=== PATIENT | male | born 1955 | race African-American/Black ===

== ENCOUNTER 2021-12-27 15:53 | Observation (INO) ==
--- NOTE | 2021-12-27 17:22 | Emergency Department Note ---
Impression & Plan Radiculomyelopathy, Upper extremity weakness, Acute neck pain ED Provider Note NAME: BRITNEY MONSIVAIS AGE: 66 SEX: M : 1955 ARRIVES VIA: Ambulance INFORMANT: Patient ED PROVIDER(S): Mati Villeda DO CHIEF COMPLAINT: Unable to care for self at home HPI:Patient is a 66-year-old male with a past medical history of longstanding signs and symptoms of cervical myeloradiculopathy who underwent conservative treatment and eventually surgery at [place] for C3-T1 posterior spinal fusion with C2-C7 decompression. He was discharged on Friday following the surgery. Since being home he notes he is having trouble caring for himself. He notes he feels weak throughout. He has chronic weakness of his right upper extremity which she believes is slightly worse. It has been fairly stable as well as the left upper extremity. He denies any new weakness or numbness in the arms or legs.No headache or change in vision. No chest pain or shortness of breath. No other exacerbating or remitting factors.Pain in the neck has not changed and is constant 10 out of 10. ROS: See above HPI for pertinent positives & negatives. A total of 10 systems reviewed and were otherwise negative. PAST MEDICAL HISTORY:See Below PAST SURGICAL HISTORY:See Below FAMILY HISTORY:See Below SOCIAL HISTORY:See Below HOME MEDICATIONS:See Below ALLERGIES:See Below VITALS:See Below PHYSICAL EXAMINATION: GENERAL: Laying in bed cervical collar in place. Dressing posterior cervical re gionTracking down to the upper thoracic EYE EXAM: normal conjunctiva. PERRL and EOM's grossly intact. OROPHARYNX: no exudate, no erythema, lips, buccal mucosa, and tongue normal and mucous membranes are moist NECK: Cervical collar in place with large bulky dressing from the upper cervical to upper thoracic LUNGS: Clear to auscultation. Normal chest wall mechanics HEART: no murmurs, S1 normal and S2 normal ABDOMEN: abdomen soft, non-tender, normo-active bowel sounds, no masses, no rebound or guarding. BACK: Back is symmetrical on inspection and there is no deformity, no midline tenderness, no CVA tenderness. SKIN: no rashes and no bruising UPPER EXTREMITIES: upper extremities are grossly normal. LOWER EXTREMITIES: No pitting edema. NEURO EXAM: Normal sensorium, cranial nerves II-XII intact, normal speech. Weakness in his grasp bilaterally. Unable to AB duct right digits. Extension on the right has a 3 out of 5 old per patient. Flexion bilateral elbows is intact. Trouble with extension on the right elbow but again old per patient. Extension is slightly weak on the left as well but again old per patient.Pulses 2 out of 4. Gross sensation intact. MEDICAL DECISION MAKING: Patient is a six 6-year-old male who presents the ER for the boasting complaint. IV was established blood work was obtained. Labs show mild leukocytosis of 15,000. No anemia. BMP with mild hyponatremia 134. COVID was negative.Fever mild leukocytosis secondary to recent surgery. Patient mitts to some mild weakness which is new. He was given dose of IV morphine. He was updated bedside. He notes he is unable to care for himself at home and consequently was discussed with hospitalist for further evaluation of weakness. Due to current volume in ER will defer to hospitalist for MRI of cervical spine. Triage Nursing notes reviewed. Limited review of prior medical records performed Vital Signs: reviewed and remarkable for no significant abnormalities Differential diagnosis: Infection, dehydration, metabolic abnormality, hypo/hyperglycemia, electrolyte disturbance, anemia, hypoxia, cardiac sources, intracerebral event, toxicologic, neurologic, as well as other pathologies. ER treatment provided: See below Diagnostics interpreted by me: ECG: none Cardiac Monitoring: An order was placed for continuous cardiac monitoring. The monitor shows a rate of 95 with sinus rhythm. Laboratory studies: As stated above and show below. Imaging studies: See below Consultation(s): [facility] Procedures: none Critical Care: None Past Med/Surg History Social History Smoking Status: Never smoker Hx Alcohol Use: No Hx Substance Use: No Preferred Language: Portuguese [employer] Required: No Beliefs That Will Affect Care: None Current Living Situation: Alone Other Information That Helps Us Care for You: No Feels Safe at Home: Yes Safety Concerns: Feels Safe At This Time Assistive Devices: None Allergies Allergies Allergy/AdvReac Type Severity Reaction Status Date / Time aspirin Allergy Unknown UNKNOWN Verified 12/27/21 17:55 Home Meds Home Medications Medication Instructions Recorded Confirmed oxycodone 5 mg tablet 5 mg PO Q6H PRN Pain 12/27/21 12/27/21 tamsulosin 0.4 mg capsule 0.4 mg PO QAM 12/27/21 12/27/21 tizanidine 2 mg tablet 2 mg PO Q8H PRN MUSCLE SPASMS 12/27/21 12/27/21 Results & Data (ED) Vital Signs Vital Signs - 24 hr 12/27/21 15:59 Temperature 37.0 C Temperature Source Oral Pulse Rate 91 H Respiratory Rate 20 Respiratory Effort / Characteristics Non-Labored Respiratory Depth Normal Blood Pressure 127/86 Blood Pressure Mean 99 Pulse Oximetry 97 Oxygen Delivery Method Room Air Sepsis New/Unexplained Change in Mental Status No Sepsis Action Taken by Nursing No Action Required Laboratory Data Result diagrams: 12/27/21 17:05 12/27/21 17:05 Lab Results 12/27/21 12/27/21 Range/Units 17:05 17:05 WBC 15.60 H (4.8-10.8) K/ul RBC 4.65 (4.63-6.08) M/uL Hgb 13.0 L (14.0-18.0) g/dl Hct 38.7 L (40.1-51.0) % MCV 83.2 (80.0-100.0) fL MCH 28.0 (25.0-34.0) pg MCHC 33.6 (32.0-36.0) g/dL RDW Std Deviation 41.1 (36.4-46.3) fL RDW Coeff of Poly 13.5 (11.5-14.5) % Plt Count 423 H (130-400) K/uL MPV 9.8 (9.4-12.4) fL Immature Gran % (Auto) 0.6 % Neut % (Auto) 78.0 % Lymph % (Auto) 12.1 % Camp % (Auto) 8.7 % Eos % (Auto) 0.3 % Baso % (Auto) 0.3 % Neut # (Auto) 12.17 H (1.4-6.5) K/uL Lymph # (Auto) 1.89 (1.2-3.4) K/uL Camp # (Auto) 1.35 H (0.24-0.82) K/uL Eos # (Auto) 0.05 (0-0.50) K/uL Baso # (Auto) 0.04 (0-0.2) K/uL Immature Gran # (Auto) 0.10 H (0.00-0.02) K/uL Sodium 132 L (136-145) mmol/L Potassium 4.2 (3.5-5.1) mmol/L Chloride 97 L (98-107) mmol/L Carbon Dioxide 25 (21-32) mmol/L Anion Gap 10 (3-11) BUN 16 (6-23) mg/dl Creatinine 0.90 (0.6-1.4) mg/dl Est Cr Clr Drug Dosing Not Reportable Est GFR ( Amer) 102.1 ml/min Est GFR (Non-Af Amer) 88.1 ml/min BUN/Creatinine Ratio 17.8 (10-20) Glucose 110 H (70-99(Fasting)) mg/dl Calcium 9.6 (8.5-10.1) mg/dl Total Bilirubin 0.7 (0.2-1.0) mg/dl AST 18 (13-39) U/L ALT 24 (7-52) U/L Alkaline Phosphatase 83 (34-104) U/L Total Protein 7.9 (6.0-8.3) gm/dl Albumin 3.9 (3.4-5.0) gm/dl Globulin 4.0 (2.5-4.0) gm/dl Albumin/Globulin Ratio 1.0 (0.9-2) Administered Medications Acetaminophen (Acetaminophen 500 Mg Tab) 1,000 mg PO Q8H [facility] Stop: 01/26/22 21:23 Last Admin: 12/27/21 22:38 Dose: 1,000 mg Documented By: SG Gabapentin (Gabapentin 100 Mg Cap) 100 mg PO TID MORA Stop: 01/26/22 21:23 Last Admin: 12/27/21 22:37 Dose: 100 mg Documented By: NATHALIA Insulin Aspart (Insulin Aspart Per Unit) 0 units SC ACHS [facility] Stop: 01/26/22 21:23 Last Admin: 12/27/21 22:20 Dose: Not Given Documented By: NATHALIA Tizanidine HCl (Tizanidine Hcl 4 Mg Tablet) 2 mg PO TID PRN PRN Reason: MUSCLE SPASM Stop: 01/26/22 21:23 Last Admin: 12/27/21 22:37 Dose: 2 mg Documented By: SG Discontinued Medications Morphine Sulfate (Morphine Sulfate 4 Mg/Ml 1 Ml Carp\Vial) 4 mg IV NOW STA Stop: 12/27/21 18:16 Last Admin: 12/27/21 18:22 Dose: 4 mg Documented By: NANDINI Ondansetron HCl (Ondansetron Inj 2 Mg/Ml 2 Ml Vial) 4 mg IV NOW STA Stop: 12/27/21 18:16 Last Admin: 12/27/21 18:22 Dose: 4 mg Documented By: NANDINI Discharge Plan Visit Data Chief Complaint: Back Injury/Pain Stated Complaint: YAZ ED Provider: Mati Villeda Discharge Problem: Radiculomyelopathy, Upper extremity weakness, Acute neck pain Patient Disposition: Admitted As Inpatient Discharge Instructions Interventions: ED Discharge Assessment Last Done: 12/27/21 20:12
[2021-12-27 17:24] LABS: Basophils # (auto) 0.04 K/uL (0-0.2); Basophils % (auto) 0.3 %; Eosinophils # (auto) 0.05 K/uL (0-0.50); Eosinophils % (auto) 0.3 %; Hematocrit (blood only) 38.7 % (40.1-51.0); Immature Granulocytes % (auto) 0.6 %; Lymphocytes # (auto) 1.89 K/uL (1.2-3.4); Lymphocytes % (auto) 12.1 %; Mean Corpuscular Hgb Conc 33.6 g/dL (32.0-36.0); Mean Corpuscular Volume 83.2 fL (80.0-100.0); Mean Platelet Volume 9.8 fL (9.4-12.4); Monocytes # (auto) 1.35 K/uL (0.24-0.82); Monocytes % (auto) 8.7 %; Neutrophils # (auto) 12.17 K/uL (1.4-6.5); Platelet Count 423 K/uL (130-400); RDW Coefficient of Variation 13.5 % (11.5-14.5); RDW Standard Deviation 41.1 fL (36.4-46.3); Red Blood Count 4.65 M/uL (4.63-6.08)
[2021-12-27 17:47] LABS: Alanine Aminotransferase 24 U/L (7-52); Albumin Level 3.9 gm/dl (3.4-5.0); Alkaline Phosphatase 83 U/L (34-104); Anion Gap 10 (3-11); Aspartate Aminotransferase 18 U/L (13-39); BUN Creatinine Ratio 17.8 (10-20); Bilirubin,Total 0.7 mg/dl (0.2-1.0); Blood Urea Nitrogen 16 mg/dl (6-23); Calcium 9.6 mg/dl (8.5-10.1); Carbon Dioxide 25 mmol/L (21-32); Chloride 97 mmol/L (98-107); Est GFR (African American) 102.1 ml/min; Est GFR (Non-African American) 88.1 ml/min; Glucose 110 mg/dl (70-99(Fasting)); Potassium 4.2 mmol/L (3.5-5.1); Sodium 132 mmol/L (136-145); Total Protein 7.9 gm/dl (6.0-8.3)
[2021-12-27] MEDS ORDERED: ONDANSETRON INJ 2 MG/ML 2 ML VIAL IV STA (18:15)
[2021-12-27] MEDS ORDERED: MoRPHine SULFATE 4 MG/ML 1 ML CARP\\VIAL IV STA (18:15)
--- NOTE | 2021-12-27 20:41 | History & Physical Report ---
Date of Service December 27, 2021 Assessment & Plan (1) Upper extremity weakness: (2) Cervical stenosis of spinal canal: (3) Radiculomyelopathy: Plan: 66 YEAR OLD MALE WITH HISTORY OF CERVICAL STENOSIS WITH RADICULOMYLEPATHY, PRE-DM, PRESENTING WITH UPPER EXTREMITY WEAKNESS AFTER CERVICAL SPINE SURGERY. UPPER EXTREMITY WEAKNESS, CERVICAL STENOSIS, RADICULOMYELOPATHY s/p C3-T1 posterior spinal fusion with C2-C7 decompression last week at [facility] by Dr. Gonzalez ([facility] no [id number]) upper extremity motor strength pre OP: R 3/5, L 4/5, today R 2-3/5, L 3/[address] Gonzalez, recommend Cervical spine MRI and Decadron 8mg x [address] Gonzalez tomorrow re: MRI findings and clinical exam pain regimen: Tylenol 1g PO MORA, Gabapentin 100mg TID, PRN oxycodone and Zanaflex PT/OT evaluation, Case Management consult will need inpatient Rehab PRE-DM BSGs while on Decadron ISS DVT PROPHYLAXIS scds FULL CODE PER PATIENT DISPOSITION INPATIENT REHAB plan of care discussed with patient in detail and at length all questions answered he is understanding, agreeable, comfortable with the plan of care History of Present Illness Chief Complaint: B/L UPPER EXTREMITY WEAKNESS, S/P CERVICAL SPINE SURGERY Primary Care Provider: Mariama Severino MD 66 YEAR OLD MALE WITH HISTORY OF CERVICAL STENOSIS WITH RADICULOMYLEPATHY, PRE-DM, PRESENTING WITH UPPER EXTREMITY WEAKNESS AFTER CERVICAL SPINE SURGERY. Patient underwent C3-T1 posterior spinal fusion with C2-C7 decompression last week at [facility] by Dr. Gonzalez. He said his BL upper extremity weakness was starting to improve and he was discharged home last Friday. Unfortunately, patient reports his upper extremity weakness seemed to have slowly worsened while at home, which made activities of daily living a significant challenge. He presented to the ER for evaluation and request to transition to inpatient Rehab. On exam, patient seen resting in bed, not in distress. Reports moderate-severe pain on the surgical site, but no dyspnea, dysphagia, numbess. He is able to ambulate well, and has good strength on his lower extremities. No fever/chills no chest pain, dyspnea, palpitations, dizziness no other symptoms Allergies Allergy/AdvReac Type Severity Reaction Status Date / Time aspirin Allergy Unknown UNKNOWN Verified 12/27/21 17:55 Home Medications Medication Instructions Recorded Confirmed Type oxycodone 5 mg tablet 5 mg PO Q6H PRN Pain 12/27/21 12/27/21 History tamsulosin 0.4 mg capsule 0.4 mg PO QAM 12/27/21 12/27/21 History tizanidine 2 mg tablet 2 mg PO Q8H PRN MUSCLE SPASMS 12/27/21 12/27/21 History Past Med/Surg History Social History Smoking Status: Never smoker Preferred Language: Kazakh Feels Safe at Home: Yes Review of Systems Review of Systems: all noted and negative except for above Physical Exam Physical Exam: General- oriented x 3, not in distress, speaks in sentences with no effort or accessory muscle use Head- atraumatic Eyes- PERRL, EOMI, anicteric ENT- oropharynx clear Neck- cervical collar in place dressing on the posterior neck: intact, no bleeding/discharge (not opened per patient request, he was advised by the surgeon not to dress/open the wound until his ff up appointment) Lungs- clear to auscultation bilaterally, no rales/wheezes Heart- normal rate, regular rhythm; no murmur, no gallop, no rub appreciated Abdomen- normal bowel sounds, nondistended, soft, nontender, no masses or hepatosplenomegaly Extremities- no pretibial edema, no calf tenderness; peripheral pulses intact Neuro- alert, oriented x 3; CN 2-12 grossly intact; Upper extremity motor: R 2- 3/5, L 3-4/5, Lower extremity motor: 5/5 bilaterally;sensation 100% on all extremities; no other gross focal neurologic deficits Skin- warm & dry Results & Data Results & Data ([facility]) Vital Signs (Past 12 Hours) Vital Signs Temp Pulse Pulse Resp BP BP Pulse Ox 12/27/21 19:56 97 H 20 125/78 96 12/27/21 18:14 87 18 121/78 99 12/27/21 18:06 85 18 95 12/27/21 15:59 37.0 C 91 H 20 127/86 97 O2 Del Method 12/27/21 19:56 Room Air 08/11/22 18:14 Room Air 12/27/21 18:06 Room Air 12/27/21 15:59 Room Air all noted and reviewed including below Code Status & VTE Plan VTE Prophylaxis Plan VTE Prophylaxis will be ordered: Yes
[2021-12-27] MEDS ORDERED: DEXTROSE 50% 50 ML SYRINGE IV PRN (21:24)
[2021-12-27] MEDS ORDERED: CARBOHYDRATES FOR HYPOGLYCEMIA PO PRN (21:24)
[2021-12-27] MEDS ORDERED: GLUCOSE 10 TAB/TUBE PO PRN (21:24)
[2021-12-27] MEDS ORDERED: GLUCAGON FOR INJ 1 MG VIAL SQ PRN (21:24)
[2021-12-27] MEDS ORDERED: GLUCOSE 40% GEL 15 GM TUBE PO PRN (21:24)
[2021-12-27] MEDS: INSULIN ASPART PER UNIT SC SCH (22:20)
[2021-12-27] MEDS: tiZANidine HCL 4 MG TABLET PO PRN (22:37)
[2021-12-27] MEDS: GABAPENTIN 100 MG CAP PO SCH (22:37)
[2021-12-27] MEDS: ACETAMINOPHEN 500 MG TAB PO SCH (22:38)
[2021-12-28] MEDS: dexAMETHasone 8 MG in SYRINGE 0 ML IV SCH ×3 (00:17→14:43)
[2021-12-28] MEDS: MoRPHine SULFATE 4 MG/ML 1 ML CARP\\VIAL IV PRN (00:17)
[2021-12-28] MEDS: ACETAMINOPHEN 500 MG TAB PO SCH ×3 (06:15→21:25)
[2021-12-28 06:22] LABS: Basophils # (auto) 0.03 K/uL (0-0.2); Basophils % (auto) 0.2 %; Eosinophils # (auto) 0.01 K/uL (0-0.50); Eosinophils % (auto) 0.1 %; Hematocrit (blood only) 42.1 % (40.1-51.0); Hemoglobin 13.8 g/dl (14.0-18.0); Immature Granulocytes # (auto) 0.13 K/uL (0.00-0.02); Immature Granulocytes % (auto) 0.9 %; Lymphocytes # (auto) 1.64 K/uL (1.2-3.4); Mean Corpuscular Hemoglobin 27.7 pg (25.0-34.0); Mean Corpuscular Hgb Conc 32.8 g/dL (32.0-36.0); Mean Corpuscular Volume 84.4 fL (80.0-100.0); Mean Platelet Volume 9.8 fL (9.4-12.4); Monocytes # (auto) 0.23 K/uL (0.24-0.82); Monocytes % (auto) 1.5 %; Neutrophils # (auto) 12.87 K/uL (1.4-6.5); Neutrophils % (auto) 86.3 %; Platelet Count 455 K/uL (130-400); RDW Coefficient of Variation 13.7 % (11.5-14.5); RDW Standard Deviation 42.6 fL (36.4-46.3); Red Blood Count 4.99 M/uL (4.63-6.08); White Blood Count 14.91 K/ul (4.8-10.8)
[2021-12-28 07:01] LABS: Anion Gap 11 (3-11); BUN Creatinine Ratio 17.5 (10-20); Blood Urea Nitrogen 18 mg/dl (6-23); Calcium 9.9 mg/dl (8.5-10.1); Carbon Dioxide 24 mmol/L (21-32); Chloride 98 mmol/L (98-107); Est GFR (African American) 86.7 ml/min; Est GFR (Non-African American) 74.8 ml/min; Glucose 139 mg/dl (70-99(Fasting)); Potassium 4.5 mmol/L (3.5-5.1); Sodium 133 mmol/L (136-145)
[2021-12-28 07:31] LABS: Estimated Average Glucose 126 mg/dl
[2021-12-28] MEDS: INSULIN ASPART PER UNIT SC SCH ×4 (09:43→20:57)
[2021-12-28] MEDS: oxyCODONE HCL IR 5 MG TAB (IMMEDIATE RELEASE) PO PRN ×2 (09:44→21:26)
[2021-12-28] MEDS: GABAPENTIN 100 MG CAP PO SCH ×3 (09:44→21:26)
[2021-12-28] MEDS: tiZANidine HCL 4 MG TABLET PO PRN ×2 (09:45→22:01)
[2021-12-28] MEDS: TAMSULOSIN HCL 0.4 MG CAP PO SCH (10:53)
--- NOTE | 2021-12-28 12:44 | Magnetic Resonance Report ---
MR cervical spine wo con HISTORY: 66 years-old Male upper arm weakness, s/p cervical spine surgery acute neck pain with right upper extremity radicular symptoms status post recent cervical spine surgery. COMPARISON: MRI cervical spine 03/14/2014, CT cervical spine 09/15/2021. TECHNIQUE: Multiplanar multisequence MRI of the cervical spine was obtained without the use of IV con trast. FINDINGS: Study is degraded by motion artifact. The patient is status post laminectomy at C3-C6 with posterior interbody eli and screw fusion hardware at C3-T1. Susceptibility artifact from the hardware also limi ts the exam. Large fluid collection within the deep operative bed measures up to 13 cm extending from C2 to T3 level. Fluid collection within the deeper laminectomy bed measures up to 6 cm. There is a s mall amount of nonspecific prevertebral edema within the paraspinal musculature. No acute fracture, s ubluxation or endplate erosion. Signal within the cervical and imaged thoracic spinal cord appears unremarkable. C2-C3: Moderate intervertebral disc space narrowing and facet arthrosis with small posterior annular disc bulge. AP dimension of the thecal sac measures 7 mm. Mild central canal stenosis. The neural for los appear patent. C3-C4: Mild intervertebral disc space narrowing and moderate facet arthrosis with uncovertebral hyper trophy and small posterior annular disc bulge. AP dimension of the thecal sac measures 6 mm. Moderate central canal stenosis with moderate bilateral foraminal narrowing, mildly progressed from prior. C4-C5: Moderate intervertebral disc space narrowing with uncovertebral hypertrophy and circumferentia l disc osteophyte complex with moderate facet arthrosis. AP dimension of the thecal sac measures 6 mm . Moderate central canal stenosis with mild right and severe left neuroforaminal narrowing, similar t o prior. C5-C6: Moderate intervertebral disc space narrowing with uncovertebral hypertrophy and circumferentia l disc osteophyte complex with moderate facet arthrosis. AP dimension of the thecal sac measures 6 mm . Moderate central canal stenosis with severe bilateral neural foraminal narrowing, similar to progre ssed from prior. C6-C7: Moderate to severe intervertebral disc space narrowing with uncovertebral hypertrophy and circ umferential disc osteophyte complex with moderate facet arthrosis. AP dimension of the thecal sac emmett sures 6 mm. Moderate central canal stenosis with severe bilateral neural foraminal narrowing, similar to progressed from prior. C7-T1: Moderate intervertebral disc space narrowing with uncovertebral hypertrophy and posterior disc osteophyte complex with moderate facet arthrosis. AP dimension of the thecal sac measures 9 mm. No s ignificant central canal stenosis. There is at least moderate bilateral neural foraminal narrowing, s uboptimally evaluated secondary to artifact from the hardware. IMPRESSION: 1. Limited exam as above. 2. The patient is status post laminectomy at C3-C6 with posterior interbody eli and screw fusion hard roach at C3-T1. 3. Posterior operative bed fluid collections suggestive of seromas. Infection cannot be excluded by i maging alone. 4. Mild prevertebral edema is also likely an expected postoperative finding. 5. Multilevel central canal and neural foraminal narrowing as above. ACT 112: Negative or not required by law. The above report was generated using voice recognition software. It may contain grammatical, syntax o r spelling errors. Dictated: 12/28/2021 9:02 AM Transcribed: 12/28/2021 11:45 AM Seema [id number] [email or web address] Electronically signed by: Ridge Traore M.D. 12/28/2021 12:43 PM
--- NOTE | 2021-12-28 22:29 | Hospitalist Progress Note ---
Date of Service December 28, 2021 Assessment & Plan (1) Upper extremity weakness: (2) Cervical stenosis of spinal canal: (3) Radiculomyelopathy: Plan: 66 YEAR OLD MALE WITH HISTORY OF CERVICAL STENOSIS WITH RADICULOMYLEPATHY, PRE-DM, PRESENTING WITH UPPER EXTREMITY WEAKNESS AFTER CERVICAL SPINE SURGERY. UPPER EXTREMITY WEAKNESS, CERVICAL STENOSIS, RADICULOMYELOPATHY s/p C3-T1 posterior spinal fusion with C2-C7 decompression last week at [facility] facility by Dr. Gonzalez ([facility] no [id number]) upper extremity motor strength pre OP: R 3/5, L 4/5, today R 2-3/5, L 3/5 MRI brain showed status post laminectomy at C3-C6 with posterior interbody eli and screw fusion hardware at C3-T1. Posterior operative bed fluid collections suggestive of seromas. Infection cannot be excluded by imaging alone. Mild prevertebral edema is also likely an expected postoperative finding.Multilevel central canal and neural foraminal narrowing as above. MRI finding discussed with his spine surgeon Dr. Gonzalez. as per dr. Gonzalez MRI showed normal postoperative finding. Adequate decompression Dr. Gonzalez said that he would take time for his motor strength improved because pt had spine compression for a long time Received decadron x 3 doses. no need to continue additional steroid as per Dr. Gonzalez Pt is neurological stable Continue Gabapentin 100mg TID, PRN oxycodone and Zanaflex Continue physical therapy and occupational therapy Plan to discharge to rehab PRE-diabetes BS mildly elevated due to steroid Hba1c 6 (12/28/21) Continue monitor BS DVT PROPHYLAXIS scds FULL CODE PER PATIENT DISPOSITION INPATIENT REHAB Admission and Anticipated Discharge Date Admission Date: December 27, 2021 Subjective Pt was seen and examined for follow up of right upper extremity weakness and difficulty to open right hand Lying in bed bed with no acute distress Pt said that neck pain improves and weakness slightly improves Denies any chest pain, palpitation, dizziness and SOB Review of Systems Review of Systems: All systems reviewed & are unremarkable except as noted in Subjective Physical Exam Physical Exam: General- No acute distress Head- atraumatic Eyes- PERRL, EOMI, ENT- oropharynx clear Neck- +soft collar in place Lungs- clear to auscultation Heart- regular rhythm; no murmur Abdomen- normal bowel sounds, soft, nontender Extremities- no calf tenderness, +right hand closed Neuro- alert, oriented x 3; PERRL, EOMI; no facial palsy; no dysarthria, unable to open his right hand without using his left hand to help open it Skin- warm & dry Results & Data Results & Data ([facility]) Vital Signs (Past 12 Hours) Vital Signs Temp Pulse Resp BP Pulse Ox O2 Del Method 12/28/21 21:18 36.6 C 84 18 134/75 98 Room Air 12/28/21 15:45 36.3 C L 83 16 137/74 93 Room Air
[2021-12-29] MEDS: ACETAMINOPHEN 500 MG TAB PO SCH ×3 (06:20→21:00)
[2021-12-29] MEDS: GABAPENTIN 100 MG CAP PO SCH ×3 (08:25→21:00)
[2021-12-29] MEDS: TAMSULOSIN HCL 0.4 MG CAP PO SCH (08:26)
[2021-12-29] MEDS: oxyCODONE HCL IR 5 MG TAB (IMMEDIATE RELEASE) PO PRN ×2 (08:30→21:00)
[2021-12-29] MEDS: INSULIN ASPART PER UNIT SC SCH ×4 (09:03→20:48)
[2021-12-29] MEDS: MoRPHine SULFATE 4 MG/ML 1 ML CARP\\VIAL IV PRN (13:16)
[2021-12-29] MEDS: bisacodyL 5 MG TABEC PO PRN (18:18)
[2021-12-29] MEDS: tiZANidine HCL 4 MG TABLET PO PRN (21:00)
--- NOTE | 2021-12-29 23:57 | Hospitalist Progress Note ---
Date of Service December 29, 2021 Assessment & Plan (1) Upper extremity weakness: (2) Cervical stenosis of spinal canal: (3) Radiculomyelopathy: Plan: 66 YEAR OLD MALE WITH HISTORY OF CERVICAL STENOSIS WITH RADICULOMYLEPATHY, PRE-DM, PRESENTING WITH UPPER EXTREMITY WEAKNESS AFTER CERVICAL SPINE SURGERY. UPPER EXTREMITY WEAKNESS, CERVICAL STENOSIS, RADICULOMYELOPATHY s/p C3-T1 posterior spinal fusion with C2-C7 decompression last week at [facility] [address] [facility] by Dr. Gonzalez ([facility] no [id number]) upper extremity motor strength pre OP: R 3/5, L 4/5, today R 2-3/5, L 3/5 MRI brain showed status post laminectomy at C3-C6 with posterior interbody eli and screw fusion hardware at C3-T1. Posterior operative bed fluid collections suggestive of seromas. Infection cannot be excluded by imaging alone. Mild prevertebral edema is also likely an expected postoperative finding.Multilevel central canal and neural foraminal narrowing as above. MRI finding discussed with his spine surgeon Dr. Gonzalez. as per dr. Gonzalez MRI showed normal postoperative finding. Adequate decompression Dr. Gonzalez said that he would take time for his motor strength improved because pt had spine compression for a long time Received decadron x 3 doses. no need to continue additional steroid as per Dr. Gonzalez Pt is neurological stable Continue Gabapentin 100mg TID, PRN oxycodone and Zanaflex Continue physical therapy and occupational therapy Plan to discharge to rehab, waiting for placement Constipation Will add Dulcolax PRE-diabetes BS mildly elevated due to steroid Hba1c 6 (12/28/21) Continue monitor BS DVT PROPHYLAXIS on SCDs FULL CODE PER PATIENT DISPOSITION Waiting for placement Admission and Anticipated Discharge Date Admission Date: December 27, 2021 Subjective Pt was seen and examined for follow up of right upper extremity weakness and difficulty to open right hand sitting in chair with no acute distress eating his meal Pt said that neck pain improves and weakness slightly improves Pt said that he has not had a bowel movement for a week Denies any chest pain, palpitation, dizziness and SOB Review of Systems Review of Systems: All systems reviewed & are unremarkable except as noted in Subjective Physical Exam Physical Exam: General- No acute distress Head- atraumatic Eyes- PERRL, EOMI, ENT- oropharynx clear Neck- +soft collar in place Lungs- clear to auscultation Heart- regular rhythm; no murmur Abdomen- normal bowel sounds, soft, nontender Extremities- no calf tenderness, +right hand closed Neuro- alert, oriented x 3; PERRL, EOMI; no facial palsy; no dysarthria, unable to open his right hand without using his left hand to help open it Skin- warm & dry Results & Data Results & Data ([facility]) Vital Signs (Past 12 Hours) Vital Signs Temp Pulse Resp BP BP Pulse Ox O2 Del Method 12/29/21 22:22 36.6 C 76 18 110/71 98 Room Air 12/29/21 15:00 36.5 C 84 16 120/73 94 Room Air
[2021-12-30] MEDS: oxyCODONE HCL IR 5 MG TAB (IMMEDIATE RELEASE) PO PRN ×3 (04:35→21:45)
[2021-12-30] MEDS: ACETAMINOPHEN 500 MG TAB PO SCH ×3 (04:36→21:45)
[2021-12-30] MEDS: TAMSULOSIN HCL 0.4 MG CAP PO SCH (08:06)
[2021-12-30] MEDS: GABAPENTIN 100 MG CAP PO SCH ×3 (08:06→21:45)
[2021-12-30] MEDS: INSULIN ASPART PER UNIT SC SCH ×4 (08:10→20:33)
[2021-12-30] MEDS: MoRPHine SULFATE 4 MG/ML 1 ML CARP\\VIAL IV PRN (12:00)
[2021-12-30] MEDS: POLYETHYLENE (MIRALAX) 17 GM PACK PO PRN (15:12)
[2021-12-30] MEDS: tiZANidine HCL 4 MG TABLET PO PRN (21:50)
--- NOTE | 2021-12-30 23:48 | Hospitalist Progress Note ---
Date of Service December 30, 2021 Assessment & Plan (1) Upper extremity weakness: (2) Cervical stenosis of spinal canal: (3) Radiculomyelopathy: Plan: 66 YEAR OLD MALE WITH HISTORY OF CERVICAL STENOSIS WITH RADICULOMYLEPATHY, PRE-DM, PRESENTING WITH UPPER EXTREMITY WEAKNESS AFTER CERVICAL SPINE SURGERY. UPPER EXTREMITY WEAKNESS, CERVICAL STENOSIS, RADICULOMYELOPATHY s/p C3-T1 posterior spinal fusion with C2-C7 decompression last week at [facility] facility by Dr. Gonzalez ([facility] no [id number]) upper extremity motor strength pre OP: R 3/5, L 4/5, today R 2-3/5, L 3/5 MRI brain showed status post laminectomy at C3-C6 with posterior interbody eli and screw fusion hardware at C3-T1. Posterior operative bed fluid collections suggestive of seromas. Infection cannot be excluded by imaging alone. Mild prevertebral edema is also likely an expected postoperative finding.Multilevel central canal and neural foraminal narrowing as above. MRI finding discussed with his spine surgeon Dr. Gonzalez. as per dr. Gonzalez MRI showed normal postoperative finding. Adequate decompression Dr. Gonzalez said that he would take time for his motor strength improved because pt had spine compression for a long time Received decadron x 3 doses. no need to continue additional steroid as per Dr. Gonzalez Pt is neurological stable Continue Gabapentin 100mg TID, PRN oxycodone and Zanaflex Continue physical therapy and occupational therapy Plan to discharge to rehab, waiting for placement Constipation Pt said that he had not had a bowel movement over 1 week Continue Dulcolax Will add Miralax prn PRE-diabetes BS mildly elevated due to steroid Hba1c 6 (12/28/21) Continue monitor BS DVT PROPHYLAXIS on SCDs FULL CODE PER PATIENT DISPOSITION Waiting for placement Admission and Anticipated Discharge Date Admission Date: December 27, 2021 Subjective Pt was seen and examined for follow up of right upper extremity weakness and difficulty to open right hand Lying in bed with no acute distress watching TV Pt said that he felt a pressure and tenderness at the back of his neck He said that he saw a serous drainage in the pillow then after that the pressure and tenderness around his cervical spine relieved Pt said that he feels fine. denies any chest pain, palpitation, dizziness and SOB Denies any chest pain, palpitation, dizziness and SOB Review of Systems Review of Systems: All systems reviewed & are unremarkable except as noted in Subjective Physical Exam Physical Exam: General- No acute distress Head- atraumatic Eyes- PERRL, EOMI, ENT- oropharynx clear Neck- +soft collar in place Lungs- clear to auscultation Heart- regular rhythm; no murmur Abdomen- normal bowel sounds, soft, nontender Extremities- no calf tenderness, +right hand closed Neuro- alert, oriented x 3; PERRL, EOMI; no facial palsy; no dysarthria, unable to open his right hand without using his left hand to help open it Skin- warm & dry Results & Data Results & Data ([facility]) Vital Signs (Past 12 Hours) Vital Signs Temp Pulse Resp BP Pulse Ox O2 Del Method 12/30/21 17:16 36.5 C 92 H 16 136/81 97 Room Air
[2021-12-31] MEDS: oxyCODONE HCL IR 5 MG TAB (IMMEDIATE RELEASE) PO PRN ×2 (04:56→09:04)
[2021-12-31] MEDS: ACETAMINOPHEN 500 MG TAB PO SCH ×3 (04:56→21:35)
[2021-12-31 06:13] LABS: Hematocrit (blood only) 38.9 % (40.1-51.0); Hemoglobin 12.5 g/dl (14.0-18.0); Mean Corpuscular Hemoglobin 27.6 pg (25.0-34.0); Mean Corpuscular Hgb Conc 32.1 g/dL (32.0-36.0); Mean Corpuscular Volume 85.9 fL (80.0-100.0); Mean Platelet Volume 9.3 fL (9.4-12.4); Platelet Count 524 K/uL (130-400); RDW Coefficient of Variation 13.6 % (11.5-14.5); Red Blood Count 4.53 M/uL (4.63-6.08)
[2021-12-31] MEDS: INSULIN ASPART PER UNIT SC SCH ×4 (09:01→23:46)
[2021-12-31] MEDS: GABAPENTIN 100 MG CAP PO SCH ×3 (09:03→21:35)
[2021-12-31] MEDS: TAMSULOSIN HCL 0.4 MG CAP PO SCH (09:03)
--- NOTE | 2021-12-31 22:57 | Hospitalist Progress Note ---
Date of Service December 31, 2021 Assessment & Plan (1) Upper extremity weakness: (2) Cervical stenosis of spinal canal: (3) Radiculomyelopathy: Plan: 66 YEAR OLD MALE WITH HISTORY OF CERVICAL STENOSIS WITH RADICULOMYLEPATHY, PRE-DM, PRESENTING WITH UPPER EXTREMITY WEAKNESS AFTER CERVICAL SPINE SURGERY. UPPER EXTREMITY WEAKNESS, CERVICAL STENOSIS, RADICULOMYELOPATHY s/p C3-T1 posterior spinal fusion with C2-C7 decompression last week at [facility] facility by Dr. Gonzalez ([facility] no [id number]) upper extremity motor strength pre OP: R 3/5, L 4/5, today R 2-3/5, L 3/5 MRI brain showed status post laminectomy at C3-C6 with posterior interbody eli and screw fusion hardware at C3-T1. Posterior operative bed fluid collections suggestive of seromas. Infection cannot be excluded by imaging alone. Mild prevertebral edema is also likely an expected postoperative finding.Multilevel central canal and neural foraminal narrowing as above. MRI finding discussed with his spine surgeon Dr. Gonzalez. as per dr. Gonzalez MRI showed normal postoperative finding. Adequate decompression Dr. Gonzalez said that he would take time for his motor strength improved because pt had spine compression for a long time Received decadron x 3 doses. no need to continue additional steroid as per Dr. Gonzalez Pt is neurological stable Continue Gabapentin 100mg TID, PRN oxycodone and Zanaflex Continue physical therapy and occupational therapy Plan to discharge to rehab, waiting for placement Constipation Pt said that he had not had a bowel movement over 1 week Continue Dulcolax and Miralax prn PRE-diabetes BS mildly elevated due to steroid Hba1c 6 (12/28/21) Continue monitor BS DVT PROPHYLAXIS on SCDs FULL CODE PER PATIENT DISPOSITION Waiting for placement Denies [facility] Admission and Anticipated Discharge Date Admission Date: December 27, 2021 Subjective Pt was seen and examined for follow up of right upper extremity weakness and difficulty to open right hand Lying in bed with no acute distress resting comfortable He continues did not have a bowel movement Insurance denied inpatient rehab. I called for peer to peer review- it could not do it since i don't have pt policy number I called spine ortho dr. Gonzalez today, no one answered Denies any chest pain, palpitation, dizziness and SOB Review of Systems Review of Systems: All systems reviewed & are unremarkable except as noted in Subjective Physical Exam Physical Exam: General- No acute distress Head- atraumatic Eyes- PERRL, EOMI, ENT- oropharynx clear Neck- +soft collar in place Lungs- clear to auscultation Heart- regular rhythm; no murmur Abdomen- normal bowel sounds, soft, nontender Extremities- no calf tenderness, +right hand closed Neuro- alert, oriented x 3; PERRL, EOMI; no facial palsy; no dysarthria, unable to open his right hand without using his left hand to help open it Skin- warm & dry Results & Data Results & Data ([facility]) Vital Signs (Past 12 Hours) Vital Signs Temp Pulse Resp BP Pulse Ox O2 Del Method 12/31/21 16:00 36.9 C 87 16 110/72 97 Room Air
[2022-01-01] MEDS: MoRPHine SULFATE 4 MG/ML 1 ML CARP\\VIAL IV PRN (01:20)
[2022-01-01] MEDS: ACETAMINOPHEN 500 MG TAB PO SCH ×3 (06:06→20:56)
[2022-01-01] MEDS: oxyCODONE HCL IR 5 MG TAB (IMMEDIATE RELEASE) PO PRN ×4 (06:07→22:05)
[2022-01-01 07:04] LABS: Hematocrit (blood only) 37.2 % (40.1-51.0); Hemoglobin 12.7 g/dl (14.0-18.0); Mean Corpuscular Hemoglobin 28.2 pg (25.0-34.0); Mean Corpuscular Hgb Conc 34.1 g/dL (32.0-36.0); Mean Corpuscular Volume 82.7 fL (80.0-100.0); Mean Platelet Volume 9.2 fL (9.4-12.4); Platelet Count 540 K/uL (130-400); RDW Coefficient of Variation 13.7 % (11.5-14.5); RDW Standard Deviation 41.1 fL (36.4-46.3); White Blood Count 12.01 K/ul (4.8-10.8)
[2022-01-01] MEDS: GABAPENTIN 100 MG CAP PO SCH ×3 (08:24→20:56)
[2022-01-01] MEDS: TAMSULOSIN HCL 0.4 MG CAP PO SCH (08:25)
[2022-01-01] MEDS: INSULIN ASPART PER UNIT SC SCH (08:56)
[2022-01-01] MEDS ORDERED: bisacodyL 5 MG TABEC PO ONE (08:58)
--- NOTE | 2022-01-01 10:35 | Hospitalist Progress Note ---
Date of Service January 01, 2022 Assessment & Plan (1) Upper extremity weakness: (2) Cervical stenosis of spinal canal: (3) Radiculomyelopathy: Plan: 66 YEAR OLD MALE WITH HISTORY OF CERVICAL STENOSIS WITH RADICULOMYLEPATHY, PRE-DM, PRESENTING WITH UPPER EXTREMITY WEAKNESS AFTER CERVICAL SPINE SURGERY. UPPER EXTREMITY WEAKNESS, CERVICAL STENOSIS, RADICULOMYELOPATHY s/p C3-T1 posterior spinal fusion with C2-C7 decompression last week at [facility] facility by Dr. Gonzalez (cell no [id number]) upper extremity motor strength pre OP: R 3/5, L 4/5, now R 2-3/5, L 3/5 MRI brain showed status post laminectomy at C3-C6 with posterior interbody eli and screw fusion hardware at C3-T1. Posterior operative bed fluid collections suggestive of seromas. Infection cannot be excluded by imaging alone. Mild prevertebral edema is also likely an expected postoperative finding.Multilevel central canal and neural foraminal narrowing as above. MRI finding discussed with his spine surgeon Dr. Gonzalez. as per dr. Gonzalez MRI showed normal postoperative finding. Adequate decompression Dr. Gonzalez said that he would take time for his motor strength improved because pt had spine compression for a long time Received decadron x 3 doses. no need to continue additional steroid as per Dr. Gonzalez Pt is neurological stable Continue Gabapentin 100mg TID, PRN oxycodone and Zanaflex Continue physical therapy and occupational therapy Plan to discharge to rehab, waiting for placement Peer to Peer to be performed today Constipation Pt said that he had not had a bowel movement over 1 week Still no BM, abd soft will give ducolax x 1 now PRE-diabetes BS mildly elevated due to steroid Hba1c 6 (12/28/21) BSG well controlled, will d/c novolog coverage Continue monitor fasting BSG Anemia hgb stable at 12.7 likely related to blood loss from previous surgery DVT PROPHYLAXIS on SCDs FULL CODE PER PATIENT DISPOSITION Waiting for placement Peer to peer today with insurance company to be done, denied acute rehab, also discussed that likely to get denied subacute based on functionality. Discussed with CM. Pt was seen and examined in collaboration with Dr. Bardales, please see addendum Admission and Anticipated Discharge Date Admission Date: December 27, 2021 Supervising Physician Co-Signing Physician Notes Pt was seen and examined for follow up of right upper extremity weakness and difficulty to open right hand. Agreed with Kenyetta GAMING exam, assessment and plan. s/p C3-T1 posterior spinal fusion with C2-C7 decompression last week at [facility] by Dr. Gonzalez (cell no [phone]) upper extremity motor strength pre OP: R 3/5, L 4/5, now R 2-3/5, L 3/5. MRI brain showed status post laminectomy at C3-C6 with posterior interbody eli and screw fusion hardware at C3-T1. Posterior operative bed fluid collections suggestive of seromas. Infection cannot be excluded by imaging alone. Peer to peer review is arranged for today. Continue PT/OT eval. Fall precaution. Continue monitor closely. MD Jeffy Subjective Patient was seen and examined in room 314. Follow-up bilateral upper extremity weakness status post cervical spine surgery. He continues to have incisional neck pain, bilateral shoulder pain as well as bilateral hand weakness. 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 He just ate breakfast and had to return to bed due to it causing him severe neck pain. He states after having his neck surgery he was discharged home prematurely. He has 5 steps to enter his home and then another 15 steps to get up his living space. He is unable to open a pill bottle due to his fine motor movement situation. He is hoping to get into rehab. He has not yet moved his bowels. He denies any abdominal pain, nausea, vomiting, fever, chills, sweats, chest pain, shortness of breath. Review of Systems Review of Systems: All systems reviewed & are unremarkable except as noted in HPI & below Physical Exam Physical Exam: Gen: WD/WN, NAD, A&O x3 HEENT: Normocephalic, atraumatic, conjunctivae moist, sclerae anicteric, mucous membranes moist. Neck: Cervical collar in place Lung: Clear to Auscultation bilaterally, no wheezes/rales/rhonchi Heart: Regular rate, regular rhythm, no murmurs, rubs, or gallops Abdomen: Soft, NT, ND +BS x 4 Extremities: No edema, patient unable to perform fine motor movements of right hand, unable to open right hand without the assist of left hand, also unable to flex shoulder and extend shoulder on right without the assistance of left. Skin: Warm, no rash, negative turgor. Results & Data Results & Data ([facility]) Vital Signs (Past 12 Hours) Vital Signs Temp Pulse Resp BP Pulse Ox O2 Del Method 01/01/22 08:00 Room Air 01/01/22 07:41 36.6 C 74 16 126/71 98 12/31/21 23:21 36.5 C 79 16 126/80 98 Room Air Laboratory Results Short CBC 01/01/22 Range/Units 06:47 WBC 12.01 H (4.8-10.8) K/ul Hgb 12.7 L (14.0-18.0) g/dl Hct 37.2 L (40.1-51.0) % Plt Count 540 H (130-400) K/uL Diagnostic Findings 01/01/22 01/01/22 12/31/21 Range/Units 08:09 06:47 20:33 WBC 12.01 H (4.8-10.8) K/ul RBC 4.50 L (4.63-6.08) M/uL Hgb 12.7 L (14.0-18.0) g/dl Hct 37.2 L (40.1-51.0) % MCV 82.7 (80.0-100.0) fL MCH 28.2 (25.0-34.0) pg MCHC 34.1 (32.0-36.0) g/dL RDW Std Deviation 41.1 (36.4-46.3) fL RDW Coeff of Poly 13.7 (11.5-14.5) % Plt Count 540 H (130-400) K/uL MPV 9.2 L (9.4-12.4) fL POC Glucose 99 118 H (70-99) mg/dl 12/31/21 12/31/21 Range/Units 17:07 12:17 WBC (4.8-10.8) K/ul RBC (4.63-6.08) M/uL Hgb (14.0-18.0) g/dl Hct (40.1-51.0) % MCV (80.0-100.0) fL MCH (25.0-34.0) pg MCHC (32.0-36.0) g/dL RDW Std Deviation (36.4-46.3) fL RDW Coeff of Poly (11.5-14.5) % Plt Count (130-400) K/uL MPV (9.4-12.4) fL POC Glucose 106 H 122 H (70-99) mg/dl Medications Administered Current Inpatient Medications Acetaminophen (Acetaminophen 500 Mg Tab) 1,000 mg PO Q8H MORA Stop: 01/26/22 21:23 Last Admin: 01/01/22 06:06 Dose: 1,000 mg Bisacodyl (Bisacodyl 5 Mg Tabec) 5 mg PO DAILY PRN PRN Reason: Constipation Stop: 01/28/22 18:07 Last Admin: 12/29/21 18:18 Dose: 5 mg Dextrose (Dextrose 50% 50 Ml Syringe) 25 - 50 ml IV UD PRN; Protocol PRN Reason: Hypoglycemia Protocol Stop: 01/26/22 21:23 Gabapentin (Gabapentin 100 Mg Cap) 100 mg PO TID MORA Stop: 01/26/22 21:23 Last Admin: 01/01/22 08:24 Dose: 100 mg Glucagon (Glucagon For Inj 1 Mg Vial) 1 mg SQ UD PRN; Protocol PRN Reason: Hypoglycemia Protocol Stop: 01/26/22 21:23 Glucose (Glucose 40% Gel 15 Gm Tube) 15 - 30 gm PO UD PRN; Protocol PRN Reason: Hypoglycemia Protocol Stop: 01/26/22 21:23 Glucose (Glucose 10 Tab/Tube) 4 - 8 tab PO UD PRN; Protocol PRN Reason: Hypoglycemia Treatment Stop: 01/26/22 21:23 Insulin Aspart (Insulin Aspart Per Unit) 0 units SC ACHS [facility] Stop: 01/26/22 21:23 Last Admin: 01/01/22 08:56 Dose: Not Given Miscellaneous (Carbohydrates For Hypoglycemia ) 15 - 30 gm PO UD PRN PRN Reason: Hypoglycemia Protocol Stop: 01/26/22 21:23 Morphine Sulfate (Morphine Sulfate 4 Mg/Ml 1 Ml Carp\Vial) 3 mg IV Q6H PRN PRN Reason: Severe Pain Stop: 01/10/22 21:23 Last Admin: 01/01/22 01:20 Dose: 3 mg Oxycodone HCl (Oxycodone Hcl Ir 5 Mg Tab (Immediate Release)) 5 mg PO Q4H PRN PRN Reason: MODERATE PAIN Stop: 01/10/22 21:23 Last Admin: 01/01/22 10:07 Dose: 5 mg Polyethylene Glycol (Polyethylene (Miralax) 17 Gm Pack) 17 gm PO DAILY PRN PRN Reason: Constipation Stop: 01/29/22 13:59 Last Admin: 12/30/21 15:12 Dose: 17 gm Tamsulosin HCl (Tamsulosin Hcl 0.4 Mg Cap) 0.[facility] Stop: 01/27/22 10:14 Last Admin: 01/01/22 08:25 Dose: 0.4 mg Tizanidine HCl (Tizanidine Hcl 4 Mg Tablet) 2 mg PO TID PRN PRN Reason: MUSCLE SPASM Stop: 01/26/22 21:23 Last Admin: 12/30/21 21:50 Dose: 2 mg
[2022-01-01] MEDS ORDERED: cefUROXime axetil 500 MG TAB PO SCH ×2 (16:00→21:00)
[2022-01-01] MEDS: cefUROXime axetil 500 MG TAB PO SCH (17:28)
[2022-01-01] MEDS: bisacodyL 5 MG TABEC PO PRN (21:10)
[2022-01-01] MEDS: POLYETHYLENE (MIRALAX) 17 GM PACK PO PRN (21:11)
[2022-01-02] MEDS: ACETAMINOPHEN 500 MG TAB PO SCH ×2 (06:23→13:43)
[2022-01-02] MEDS: oxyCODONE HCL IR 5 MG TAB (IMMEDIATE RELEASE) PO PRN ×2 (07:53→14:36)
[2022-01-02 08:10] LABS: Creatinine Clr Calc Pharmacy 78.3 ml/min; Est GFR (African American) 102.1 ml/min; Est GFR (Non-African American) 88.1 ml/min
[2022-01-02] MEDS: GABAPENTIN 100 MG CAP PO SCH ×2 (09:06→13:43)
[2022-01-02] MEDS: TAMSULOSIN HCL 0.4 MG CAP PO SCH (09:06)
[2022-01-02] MEDS: cefUROXime axetil 500 MG TAB PO SCH (09:06)
[2022-01-02] MEDS ORDERED: bisacodyL 5 MG TABEC PO ONE (09:12)
[2022-01-02] MEDS ORDERED: POLYETHYLENE (MIRALAX) 17 GM PACK PO STA (09:12)
--- NOTE | 2022-01-02 10:32 | Discharge Summary ---
Date of Service January 02, 2022 Admission HPI Per Admitting Provider 66 YEAR OLD MALE WITH HISTORY OF CERVICAL STENOSIS WITH RADICULOMYLEPATHY, PRE-DM, PRESENTING WITH UPPER EXTREMITY WEAKNESS AFTER CERVICAL SPINE SURGERY. Patient underwent C3-T1 posterior spinal fusion with C2-C7 decompression last week at [facility] by Dr. Gonzalez. He said his BL upper extremity weakness was starting to improve and he was discharged home last Friday. Unfortunately, patient reports his upper extremity weakness seemed to have slowly worsened while at home, which made activities of daily living a significant challenge. He presented to the ER for evaluation and request to transition to inpatient Rehab. On exam, patient seen resting in bed, not in distress. Reports moderate-severe pain on the surgical site, but no dyspnea, dysphagia, numbess. He is able to ambulate well, and has good strength on his lower extremities. No fever/chills no chest pain, dyspnea, palpitations, dizziness no other symptoms Admission Exam Per Admitting Provider Physical Exam: General- oriented x 3, not in distress, speaks in sentences with no effort or accessory muscle use Head- atraumatic Eyes- PERRL, EOMI, anicteric ENT- oropharynx clear Neck- cervical collar in place dressing on the posterior neck: intact, no bleeding/discharge (not opened per patient request, he was advised by the surgeon not to dress/open the wound until his ff up appointment) Lungs- clear to auscultation bilaterally, no rales/wheezes Heart- normal rate, regular rhythm; no murmur, no gallop, no rub appreciated Abdomen- normal bowel sounds, nondistended, soft, nontender, no masses or hepatosplenomegaly Extremities- no pretibial edema, no calf tenderness; peripheral pulses intact Neuro- alert, oriented x 3; CN 2-12 grossly intact; Upper extremity motor: R 2- 3/5, L 3-4/5, Lower extremity motor: 5/5 bilaterally;sensation 100% on all extremities; no other gross focal neurologic deficits Skin- warm & dry Principal Diagnosis Cervical Stenosis of spinal canal S/P C3-T1 posterior spinal fusion with C2-C7 decompression Anemia Discharge Exam Gen: WD/WN, NAD, A&O x3, sitting up at bedside HEENT: Normocephalic, atraumatic, conjunctivae moist, sclerae anicteric, mucous membranes moist. Neck: Cervical collar in place, dressing CDI Lung: Clear to Auscultation bilaterally, no wheezes/rales/rhonchi Heart: Regular rate, regular rhythm, no murmurs, rubs, or gallops Abdomen: Soft, NT, ND +BS x 4 Extremities: No edema, patient unable to perform fine motor movements of right hand, unable to open right hand without the assist of left hand, also unable to flex shoulder and extend shoulder on right without the assistance of left. Skin: Warm, no rash, negative turgor. Discharge Data Allergies Allergy/AdvReac Type Severity Reaction Status Date / Time aspirin Allergy Unknown UNKNOWN Verified 12/27/21 17:55 Consultations 12/27/21 18:09 ED Decision to Admit Stat Ordered Studies Cervical Spine MRI 12/27/21 19:01 MR cervical spine wo con HISTORY: 66 years-old Male upper arm weakness, s/p cervical spine surgery acute neck pain with right upper extremity radicular symptoms status post recent cervical spine surgery. COMPARISON: MRI cervical spine 03/14/2014, CT cervical spine 09/15/2021. TECHNIQUE: Multiplanar multisequence MRI of the cervical spine was obtained without the use of IV contrast. FINDINGS: Study is degraded by motion artifact. The patient is status post laminectomy at C3-C6 with posterior interbody eli and screw fusion hardware at C3-T1. Susceptibility artifact from the hardware also limits the exam. Large fluid collection within the deep operative bed measures up to 13 cm extending from C2 to T3 level. Fluid collection within the deeper laminectomy bed measures up to 6 cm. There is a small amount of nonspecific prevertebral edema within the paraspinal musculature. No acute fracture, subluxation or endplate erosion. Signal within the cervical and imaged thoracic spinal cord appears unremarkable. C2-C3: Moderate intervertebral disc space narrowing and facet arthrosis with small posterior annular disc bulge. AP dimension of the thecal sac measures 7 mm. Mild central canal stenosis. The neural foramina appear patent. C3-C4: Mild intervertebral disc space narrowing and moderate facet arthrosis with uncovertebral hypertrophy and small posterior annular disc bulge. AP dimension of the thecal sac measures 6 mm. Moderate central canal stenosis with moderate bilateral foraminal narrowing, mildly progressed from prior. C4-C5: Moderate intervertebral disc space narrowing with uncovertebral hypertrophy and circumferential disc osteophyte complex with moderate facet arthrosis. AP dimension of the thecal sac measures 6 mm. Moderate central canal stenosis with mild right and severe left neuroforaminal narrowing, similar to prior. C5-C6: Moderate intervertebral disc space narrowing with uncovertebral hypertrophy and circumferential disc osteophyte complex with moderate facet arthrosis. AP dimension of the thecal sac measures 6 mm. Moderate central canal stenosis with severe bilateral neural foraminal narrowing, similar to progressed from prior. C6-C7: Moderate to severe intervertebral disc space narrowing with uncovertebral hypertrophy and circumferential disc osteophyte complex with moderate facet arthrosis. AP dimension of the thecal sac measures 6 mm. Moderate central canal stenosis with severe bilateral neural foraminal narrowing, similar to progressed from prior. C7-T1: Moderate intervertebral disc space narrowing with uncovertebral hypertrophy and posterior disc osteophyte complex with moderate facet arthrosis. AP dimension of the thecal sac measures 9 mm. No significant central canal stenosis. There is at least moderate bilateral neural foraminal narrowing, suboptimally evaluated secondary to artifact from the hardware. IMPRESSION: 1. Limited exam as above. 2. The patient is status post laminectomy at C3-C6 with posterior interbody eli and screw fusion hardware at C3-T1. 3. Posterior operative bed fluid collections suggestive of seromas. Infection cannot be excluded by imaging alone. 4. Mild prevertebral edema is also likely an expected postoperative finding. 5. Multilevel central canal and neural foraminal narrowing as above. ACT 112: Negative or not required by law. The above report was generated using voice recognition software. It may contain grammatical, syntax or spelling errors. Dictated: 12/28/2021 9:02 AM Transcribed: 12/28/2021 11:45 AM Seema [id number] [email or web address] Electronically signed by: Ridge Traore M.D. 12/28/2021 12:43 PM Hospital Course (1) Upper extremity weakness: (2) Cervical stenosis of spinal canal: (3) Radiculomyelopathy: 66 YEAR OLD MALE WITH HISTORY OF CERVICAL STENOSIS WITH RADICULOMYLEPATHY, PRE-DM, PRESENTING WITH UPPER EXTREMITY WEAKNESS AFTER CERVICAL SPINE SURGERY. UPPER EXTREMITY WEAKNESS, CERVICAL STENOSIS, RADICULOMYELOPATHY s/p C3-T1 posterior spinal fusion with C2-C7 decompression last week at [facility] facility by Dr. Gonzalez (cell no [id number]) upper extremity motor strength pre OP: R 3/5, L 4/5, now R 2-3/5, L 3/5 MRI brain showed status post laminectomy at C3-C6 with posterior interbody eli and screw fusion hardware at C3-T1. Posterior operative bed fluid collections suggestive of seromas. Infection cannot be excluded by imaging alone. Mild prevertebral edema is also likely an expected postoperative finding.Multilevel central canal and neural foraminal narrowing as above. MRI finding discussed with his spine surgeon Dr. Gonzalez. as per dr. Gonzalez MRI showed normal postoperative finding. Adequate decompression Dr. Gonzalez said that he would take time for his motor strength improved because pt had spine compression for a long time Received decadron x 3 doses. no need to continue additional steroid as per Dr. Gonzalez Pt is neurological stable Continue Gabapentin 100mg TID, PRN oxycodone and Zanaflex Continue physical therapy and occupational therapy Pt noted to have increased drainage from surgical site yesterday. Dr. Gonzalez was contacted by Dr. Bardales. He recommended cefuroxime bid x 5 days. Discharging to [facility] today for sub acute rehab Follow up with Dr. Gonzalez will need to be arranged when he gets to rehab. Constipation Pt said that he had not had a bowel movement over 1 week Still no BM, abd soft will give ducolax x 1 now and dose of miralax PRE-diabetes BS mildly elevated due to steroid Hba1c 6 (12/28/21) BSG well controlled, will d/c novolog coverage Continue monitor fasting BSG Anemia hgb stable at 12.7 likely related to blood loss from previous surgery DVT PROPHYLAXIS on SCDs FULL CODE PER PATIENT DISPOSITION D/C to [facility] Today Pt was seen and examined in collaboration with Dr. Avitia, please see addendum Total Time Total Time Spent Total Time Spent (In Minutes): 60 minutes Discharge Plan Discharge Items Patient Disposition: Transfer [facility] Fac Reason For Visit: WEAKNESS Discharge Diagnosis: Cervical Stenosis of spinal canal S/P C3-T1 posterior spinal fusion with C2-C7 decompression Anemia Condition on Discharge: Good Activity: Resume your previous activity Weightbearing: Full weightbearing Non-emergency contact: Primary Care Provider and Surgeon Call non-emergency contact if: you have any medication questions, your symptoms worsen, your pain is not controlled, your pain is worsening, your pain is unusual for you, your pain is concerning for you, you have a fever, your temperature is above 101, your wound has increased redness, your wound has increased drainage and your wound pain has increased Follow-up/Referrals: Mariama Severino MD [Primary Care Provider] - Diet: Regular Addtl Attending Provider Instructions: MEDICATION CHANGES: New Medications: Cefuroxime 500mg twice daily x 5 days for drainage from surgical site. Gabapentin 100mg by mouth twice daily. Continue all other medications. PENDING TEST RESULTS: None RECOMMENDATIONS FOR FOLLOW-UP: Please follow up with Orthopedic Surgeon, Dr. Gonzalez, when discharged from hospital. You will need follow up with Dr. Gonzalez for incision management and hospital follow up. You were prescribed antibiotics cefuroxime 500mg twice daily x 5 days due to drainage from surgical site. This was at the direction of Dr. Gonzalez. Repeat CBC, BMP in 3 days. Apply dry dressing to surgical site and change daily or as needed for saturation. OTHER INSTRUCTIONS: Seek medical attention if you have: * temperature above 101 * chest pain or trouble breathing * abdominal pain, nausea, vomiting * diarrhea, dark stools or bloody stools * any unanswered questions or concerns Call 911 if symptoms are severe. Please take good care of yourself. It has been a pleasure taking care of you. Please take care of yourself. If you have any questions regarding your recent hospitalization please contact [facility] and request [employer] @ [phone]. Kenyetta Guerrero PA-C Pending Studies at Discharge: No Stand-Alone Forms: My [facility] Skilled Items Patient informed of condition?: Yes DNR: No Discharge Level of Care: Skilled Communicable Disease: No Discharge Prognosis: Stable Lines: None Urinary Catheter: No Medications and DC Order Prescriptions: New gabapentin 100 mg Capsule 100 mg PO TID 30 Days Qty: 90 0RF cefuroxime axetil 500 mg Tablet 500 mg PO BID 5 Days Qty: 10 0RF Continued tizanidine 2 mg tablet 2 mg PO Q8H PRN (Reason: MUSCLE SPASMS) 7 Days Qty: 21 0RF tamsulosin 0.4 mg capsule 0.4 mg PO QAM 30 Days Qty: 30 0RF oxycodone 5 mg tablet 5 mg PO Q6H PRN (Reason: Pain) 7 Days Qty: 20 0RF Discharge Orders: Discharge Order (Routine); Ordered 01/02/22 Ordered By: Kenyetta Brown/Other Patient Handouts: Prediabetes Admission Data Admit Date/Time: 12/27/21 17:50 Attending Provider: Ade Avitia Admit Provider: Asael Bonilla Primary Care Provider: Mariama Severino Other Providers: Asael Bonilla ; Jason Giang ; Kenyetta Guerrero ; Kurtis Bardales Other Interventions: Discharge Summary Assessment (RN) Last Done: 01/02/22 13:09 Supervising Physician Co-Signing Physician Notes 01/02/2022 Attending addendum: The patient was seen and examined in medical floor He has been feeling much better and complains to have some neck pain without any radiculopathy Has been ambulating in the room without any problem Denies any other significant symptoms On examination No apparent distress at rest Has cervical collar in place Hemodynamically stable Chest-clear to auscultate bilaterally Heart-S1-S2, regular Abdomen-benign Extremities-negative for any edema His labs, imaging studies reviewed. Medications reviewed Agree with assessment and plan as outlined above by Kenyetta Avitia
[2022-01-02] MEDS ORDERED: COVID-19 VACC, TRIS(PFIZER)/PF 30 MCG/0.3 ML VIAL IM ONE (12:00)
== END 2022-01-02 15:06 ==
LOC: ED 15:53 → 3E 17:50 → INTOOBSV 17:50 → SUATTDRO 17:50 → 3E 20:12